=== PATIENT | female | born 1980 | race African-American/Black ===

== ENCOUNTER 2020-01-14 10:51 | Emergency (ER) | payer MEDICAID ==
[~2020-01-14] VITALS: Ht 167.6 cm; Wt 72.6 kg
[~2020-01-14 10:51] MED LIST: IBUP-1174 PO
[2020-01-14 11:01] VITALS: BP 145/64
[2020-01-14] MEDS ORDERED: cefTRIAXone SOD 500 MG VL IM ONE (11:15)
[2020-01-14] MEDS ORDERED: AZITHROMYCIN 250 MG TAB PO ONE (11:15)
== END 2020-01-14 11:51 | disposition home or self-care (01) ==
LOC: ER 10:51
DX: K04.7 Periapical abscess without sinus (principal); Z20.2 Contact with and (suspected) exposure to infections with a predominantly sexual mode of transmission
CPT/HCPCS: 81002; 96372; 99283; J0696

== ENCOUNTER 2022-05-10 08:45 | Emergency (ER) | payer MEDICAID, OTHER ==
[~2022-05-10] VITALS: Ht 167.6 cm; Wt 81.4 kg
[2022-05-10 09:15] LABS: Urine Bacteria NONE SEEN /hpf (None Seen); Urine Blood Negative /uL (Negative); Urine Specific Gravity 1.035 (1.001-1.035); Urine WBC 2 /hpf (0 - 5)
[2022-05-10] MEDS ORDERED: METF-372 PO (09:58)
[2022-05-10] MEDS ORDERED: CEPH-510 PO (09:58)
[2022-05-10 10:03] VITALS: BP 149/88
== END 2022-05-10 10:06 | disposition home or self-care (01) ==
LOC: ER 08:50
DX: R22.1 Localized swelling, mass and lump, neck (principal); R10.30 Lower abdominal pain, unspecified; E11.9 Type 2 diabetes mellitus without complications; I10 Essential (primary) hypertension; F17.210 Nicotine dependence, cigarettes, uncomplicated; Z76.0 Encounter for issue of repeat prescription; Z32.02 Encounter for pregnancy test, result negative
CPT/HCPCS: 81001; 81025

== ENCOUNTER → 2022-07-27 | Emergency (ER) | payer OTHER ==
[~2022-07-27] VITALS: Ht 167.6 cm; Wt 70.9 kg
[~2022-07-27] MED LIST changes: +CEPH-510 PO; +METF-372 PO
[2022-07-27 18:14] VITALS: BP 132/87
[2022-07-27 19:36] LABS: Basophils # (auto) 0 10 ^3/uL (0-0.2); Eosinophils # (auto) 0.1 10 ^3/uL (0-0.8); Monocytes # (auto) 0.6 10 ^3/uL (0-1.3); Nucleated Red Blood Cells % 0.1 %
[2022-07-27 19:38] LABS: Basophils % (auto) 0.2 % (0.0-2.0); Eosinophils % (auto) 1.2 % (0.0-7.0); Hematocrit 35.4 % (36.0-46.0); Hemoglobin 11.3 g/dL (12.2-16.2); Lymphocytes # (auto) 2.1 10 ^3/uL (0.4-5.4); Lymphocytes % (auto) 25.1 % (10.0-50.0); Monocytes % (auto) 6.7 % (0.0-12.0); Neutrophils # (auto) 5.7 10 ^3/uL (1.6-8.6); Neutrophils % (auto) 66.8 % (37.0-80.0); Red Blood Cells 4.92 10^6/uL (4.0-5.20); White Blood Cell 8.5 10^3/uL (4.4-10.8)
[2022-07-27 19:43] LABS: Albumin 3.5 g/dL (3.4-5.0); BUN/Creatinine Ratio 8.2; Potassium 3.8 mmol/L (3.5-5.1)
[2022-07-27 19:46] LABS: Bilirubin, Total 0.3 mg/dL (0.2-1.0); Total Protein 7.5 g/dL (6.4-8.2)
== END | disposition left against medical advice (07) ==
LOC: ER 17:19
DX: O20.8 Other hemorrhage in early pregnancy (principal); R10.2 Pelvic and perineal pain; E11.9 Type 2 diabetes mellitus without complications; I10 Essential (primary) hypertension; F17.210 Nicotine dependence, cigarettes, uncomplicated; Z3A.22 22 weeks gestation of pregnancy
CPT/HCPCS: 36415; 80053; 84702; 85025